=== PATIENT | male | born 1955 ===

== ENCOUNTER 2021-09-20 06:40 | Emergency (ER) | payer OTHER ==
[2021-09-20 06:44] VITALS: BP 146/92
--- NOTE | 2021-09-20 10:12 | Emergency Department Report ---
Minor Respiratory - HPI Chief Complaint: Adult Asthma Stated Complaint: ASTHMA Time Seen by Provider: 09/20/21 10:04 Duration: 3 Days Pain Location: Chest Severity: mild Minor Respiratory: Yes Able to Tolerate Fluids, Yes Cough, No Rhinorrhea, No Sore Throat, No Ear Pain, No Sick Contacts, No Hemoptysis, No Chest Pain, No Shortness of Breath, No Fever Other History: Patient is a 66-year-old male. He is looks much younger than stated age. That comes to the emergency room with acute on chronic asthma exacerbation. He states that he moved here from [place] to get away from his allergies/asthma but they have actually been worse since moving south. He is originally from [place]. He has run out of his inhalers and nebulizer. He has no fever or chills. No purulent sputum. He is a non-smoker. Patient is ambulatory, not ill nontoxic-appearing on exam in [facility] ED Review of Systems ROS: Stated complaint: ASTHMA Other details as noted in HPI Comment: All other systems reviewed and negative ED Past Medical Hx - Past Medical History Previous Medical History?: Yes Hx Asthma: Yes - Surgical History Past Surgical History?: No - Family History Family history: no significant - Social History Smoking Status: Never Smoker Substance Use Type: None - Medications Home Medications: Home Medications Medication Instructions Recorded Confirmed Last Taken Type ALBUTEROL NEB's [Proventil 0.083% 2.5 mg IH TID PRN #1 box 09/20/21 Unknown Rx NEBS] Albuterol Mdi (or & Nicu Only) 2 puff IH QID PRN #1 inhalation 09/20/21 Unknown Rx [ProAir HFA Inhaler] Cetirizine HCl [ZyrTEC] 10 mg PO DAILY #30 capsule 09/20/21 Unknown Rx Fluticasone [Flonase] 1 spray NS QDAY #1 bottle 09/20/21 Unknown Rx predniSONE [Deltasone] 20 mg PO DAILY #5 tablet 09/20/21 Unknown Rx Minor Respiratory Exam - Exam General: Vital signs noted. No distress. Alert and acting appropriately. HEENT: Yes Moist Mucous Membranes, No Pharyngeal Erythema, No Pharyngeal Exudates, No Rhinorrhea, No Conjuctival Injection, No Frontal Tenderness, No Maxillary Tenderness Ear: Neither TM Bulge, Neither TM Erythema, Neither EAC Pain, Neither EAC Discharge Neck: Yes Supple, No Adenopathy Lungs: Yes Good Air Exchange, Yes Wheezes, No Ronchi, No Stridor, No Cough, No Labored Respirations, No Retractions, No Use of Accessory Muscles, No Other Abnormal Lung Sounds Heart: Yes Regular, No Murmur Abdomen: Yes Normal Bowel Sounds, No Tenderness, No Peritoneal Signs Skin: No Rash, No Edema Neurologic: Alert and oriented, no deficits. Musculoskeletal: Unremarkable. ED Course Vital Signs 09/20/21 06:42 Temperature 98.4 F Pulse Rate 90 Respiratory 18 Rate Blood Pressure 146/92 [Right] O2 Sat by Pulse 98 Oximetry ED Medical Decision Making - Radiology Data Radiology results: report reviewed, image reviewed No acute process - Medical Decision Making Vital Signs 09/20/21 06:42 Temperature 98.4 F Pulse Rate 90 Respiratory 18 Rate Blood Pressure 146/92 [Right] O2 Sat by Pulse 98 Oximetry Patient looks much younger than stated age. He has no chest pain or shortness of breath. He comes in for his wheezing. He is out of his inhaler and nebs. He has acute on chronic asthma. No fever or chills. No purulent sputum. He is ambulatory, nontoxic [id number]. He has no hypotension, tachycardia fever or hypoxia. He is fully immunized for COVID. Patient is healthy for 66 years. Patient given DuoNeb and steroids in ER. He tolerated well. The wheezing ceased at that time. On discharge exam patient is ambulatory to and from the restroom with an oxygen sat of 100% on room air. Patient given local referrals per PCP. Patient being discharged home with discharge plan of care including diet, activity, medications and follow-up. He verbalizes understanding of plan of care Vital Signs 09/20/21 06:42 Temperature 98.4 F Pulse Rate 90 Respiratory 18 Rate Blood Pressure 146/92 [Right] O2 Sat by Pulse 98 Oximetry Vital Signs 09/20/21 06:42 Temperature 98.4 F Pulse Rate 90 Respiratory 18 Rate Blood Pressure 146/92 [Right] O2 Sat by Pulse 98 Oximetry - Differential Diagnosis Asthma with or without infection, COVID, pneumonia Critical care attestation.: If time is entered above; I have spent that time in minutes in the direct care of this critically ill patient, excluding procedure time. ED Disposition Clinical Impression: Asthma, acute Disposition: 01 HOME / SELF CARE / HOMELESS Is pt being admited?: No Does the pt Need Aspirin: No Condition: Stable Instructions: Asthma, Adult, Asthma (ED) Additional Instructions: Follow-up with PCP. Have given you referral below. Medications as ordered today Diet and activity as tolerated Stay well-hydrated with water Prescriptions: predniSONE [Deltasone] 20 mg PO DAILY #5 tablet Fluticasone [Flonase] 1 spray NS QDAY #1 bottle Albuterol Mdi (or & Nicu Only) [ProAir HFA Inhaler] 2 puff IH QID PRN #1 inhalation PRN Reason: Shortness Of Breath ALBUTEROL NEB's [Proventil 0.083% NEBS] 2.5 mg IH TID PRN #1 box PRN Reason: Wheezing Cetirizine HCl [ZyrTEC] 10 mg PO DAILY #30 capsule Referrals: CHERI JULES MD [Staff Physician] - 3-5 Days Time of Disposition: 11:56
[2021-09-20] MEDS ORDERED: IPRATROPIUM/ALBUTEROL SULFATE 3 ML AMPUL.NEB IH ONE (10:30)
[2021-09-20] MEDS ORDERED: ALBUTEROL 2.5 MG/3 ML NEBU IH ONE (10:30)
[2021-09-20] MEDS ORDERED: predniSONE 20 MG TAB PO ONE (11:00)
--- NOTE | 2021-09-20 18:46 | XRay Report ---
CHEST 2 VIEWS INDICATION / CLINICAL INFORMATION: SOB. COMPARISON: None available. FINDINGS: SUPPORT DEVICES: None. HEART / MEDIASTINUM: No significant abnormality. LUNGS / PLEURA: No significant pulmonary or pleural abnormality. No pneumothorax. ADDITIONAL FINDINGS: No significant additional findings. IMPRESSION: 1. No acute findings. Signer Name: Sabas Howard MD Signed: 09/20/2021 6:42 PM Workstation Name: [id number]
== END 2021-09-20 17:57 | disposition home or self-care (01) ==
LOC: ED 06:40
DX: J45.901 Unspecified asthma with (acute) exacerbation (principal)
CPT/HCPCS: 71046; 94640; 99283

== ENCOUNTER 2021-10-11 09:53 | Emergency (ER) | payer OTHER ==
[2021-10-11] MEDS ORDERED: IPRATROPIUM 0.02% NEBU 2.5 ML IH ONE (10:19)
[2021-10-11] MEDS ORDERED: MAGNESIUM SULFATE 2 GM/50 ML BAG IV ONE (10:19)
[2021-10-11] MEDS ORDERED: ALBUTEROL 2.5 MG/3 ML NEBU IH ONE (10:19)
[2021-10-11] MEDS ORDERED: methylPREDNISolone Sod Succinate 125 MG/2 ML INJ IV ONE (10:19)
[2021-10-11] MEDS ORDERED: hydrALAZINE 20 MG/1 ML INJ IV ONE ×2 (10:21→12:52)
--- NOTE | 2021-10-11 10:24 | Emergency Department Report ---
ED Shortness of Breath HPI - General Chief Complaint: Dyspnea/Respdistress Stated Complaint: SOB/HTN Time Seen by Provider: 10/11/21 10:19 Source: patient, EMS Mode of arrival: Stretcher Limitations: No Limitations - History of Present Illness Initial Comments: Patient is 66 years old male with history of asthma and hypertension. Patient is noncompliant with his medication. Patient brought to the emergency room via EMS from home for evaluation of shortness of breath and elevated blood pressure. Patient also complaining of wheezing. Patient denies any fever or chills. No chest pain. Patient received albuterol by EMS and stated that it helped his symptoms a little bit. MD Complaint: shortness of breath, cough -: This morning Severity: moderate Known History Of: asthma Associated Symptoms: denies other symptoms - Related Data Previous Rx's Medication Instructions Recorded Last Taken Type ALBUTEROL NEB's [Proventil 0.083% 2.5 mg IH TID PRN #1 box 09/20/21 Unknown Rx NEBS] Albuterol Mdi (or & Nicu Only) 2 puff IH QID PRN #1 inhalation 09/20/21 Unknown Rx [ProAir HFA Inhaler] Cetirizine HCl [ZyrTEC] 10 mg PO DAILY #30 capsule 09/20/21 Unknown Rx Fluticasone [Flonase] 1 spray NS QDAY #1 bottle 09/20/21 Unknown Rx predniSONE [Deltasone] 20 mg PO DAILY #5 tablet 09/20/21 Unknown Rx Allergies Allergy/AdvReac Type Severity Reaction Status Date / Time No Known Allergies Allergy Verified 10/11/21 09:58 ED Review of Systems ROS: Stated complaint: SOB/HTN Other details as noted in HPI Comment: All other systems reviewed and negative Constitutional: denies: chills, fever Respiratory: shortness of breath, SOB with exertion, SOB at rest, wheezing. denies: cough Cardiovascular: denies: chest pain, palpitations Gastrointestinal: denies: abdominal pain, nausea, vomiting Musculoskeletal: denies: back pain Neurological: denies: headache, weakness ED Past Medical Hx - Past Medical History Hx Asthma: Yes - Social History Smoking Status: Never Smoker Substance Use Type: None - Medications Home Medications: Home Medications Medication Instructions Recorded Confirmed Last Taken Type ALBUTEROL NEB's [Proventil 0.083% 2.5 mg IH TID PRN #1 box 09/20/21 Unknown Rx NEBS] Albuterol Mdi (or & Nicu Only) 2 puff IH QID PRN #1 inhalation 09/20/21 Unknown Rx [ProAir HFA Inhaler] Cetirizine HCl [ZyrTEC] 10 mg PO DAILY #30 capsule 09/20/21 Unknown Rx Fluticasone [Flonase] 1 spray NS QDAY #1 bottle 09/20/21 Unknown Rx predniSONE [Deltasone] 20 mg PO DAILY #5 tablet 09/20/21 Unknown Rx ED Physical Exam - General Limitations: No Limitations General appearance: alert, in no apparent distress - Head Head exam: Present: atraumatic, normocephalic, normal inspection - Eye Eye exam: Present: normal appearance - ENT ENT exam: Present: normal exam, normal orophraynx, mucous membranes moist - Neck Neck exam: Present: normal inspection, full ROM. Absent: tenderness, meningismus - Respiratory Respiratory exam: Present: wheezes, rales, decreased breath sounds. Absent: respiratory distress, rhonchi, accessory muscle use, prolonged expiratory - Cardiovascular Cardiovascular Exam: Present: regular rate, normal rhythm, normal heart sounds - GI/Abdominal GI/Abdominal exam: Present: soft, normal bowel sounds. Absent: distended, tenderness, guarding, rebound, rigid, organomegaly, mass, bruit, pulsatile mass, hernia - Extremities Exam Extremities exam: Present: normal inspection, full ROM, normal capillary refill. Absent: tenderness - Back Exam Back exam: Present: normal inspection, full ROM. Absent: CVA tenderness (R), CVA tenderness (L) - Neurological Exam Neurological exam: Present: alert, oriented X3, CN II-XII intact, normal gait, reflexes normal. Absent: motor sensory deficit - Psychiatric Psychiatric exam: Present: normal mood - Skin Skin exam: Present: warm, intact, normal color ED Course Vital Signs 10/11/21 10/11/21 09:55 11:38 Pulse Rate 108 H Pulse Rate [ 114 H Bilateral] Respiratory 18 Rate Respiratory 20 Rate [Bilateral ] Blood Pressure 201/105 [Right] O2 Sat by Pulse 97 Oximetry ED Medical Decision Making - Lab Data Result diagrams: 10/11/21 10:32 10/11/21 10:32 - Radiology Data Radiology results: report reviewed - Medical Decision Making Patient is 66 years old male with history of asthma and hypertension. Patient is noncompliant with his medication. Patient brought to the emergency room via EMS from home for evaluation of shortness of breath and elevated blood pressure. Patient also complaining of wheezing. Patient denies any fever or chills. No chest pain. Patient received albuterol by EMS and stated that it helped his symptoms a little bit. Patient received albuterol, Atrovent, Solu-Medrol and magnesium sulfate. Patient stated that he is feeling much better. Patient received hydralazine 20 mg IV for his blood pressure with improvement. Labs reviewed and is unremarkable. Chest x-ray is negative for acute finding. Patient given prescription for prednisone, albuterol and Norvasc and advised to follow-up with his primary doctor in the next 2 to 3 days and to return to the ER if he develop any new symptoms Critical care attestation.: If time is entered above; I have spent that time in minutes in the direct care of this critically ill patient, excluding procedure time. ED Disposition Clinical Impression: Acute asthma exacerbation, Malignant hypertension Disposition: 01 HOME / SELF CARE / HOMELESS Is pt being admited?: No Condition: Stable Instructions: Hypertension (ED), Asthma Attack Prevention, Adult, Hypertension, Adult Referrals: PRIMARY CARE, [Primary Care Provider] - 3-5 Days
--- NOTE | 2021-10-11 10:46 | XRay Report ---
CHEST 1 VIEW INDICATION: Dyspnea. COMPARISON: 09/20/2021 FINDINGS: Support devices: None. Heart: Normal. Lungs/Pleura: No acute pulmonary or pleural findings. Mild COPD changes. IMPRESSION: 1. No acute findings. Signer Name: Lopez Goldberg MD Signed: 10/11/2021 10:41 AM Workstation Name: [id number]
[2021-10-11 10:48] LABS: Basophils % (Auto) 0.5 % (0.0-1.8); Eosinophils # (Auto) 0.2 K/mm3 (0.0-0.4); Eosinophils % (Auto) 2.3 % (0.0-4.3); Hematocrit 42.5 % (35.5-45.6); Hemoglobin 14.1 gm/dl (11.8-15.2); Lymphocytes # (Auto) 1.3 K/mm3 (1.2-5.4); Lymphocytes % (Auto) 18.9 % (13.4-35.0); Mean Corpuscular HGB Conc 33 % (32-34); Mean Corpuscular Volume 84 fl (84-94); Monocytes # (Auto) 0.9 K/mm3 (0.0-0.8); Monocytes % (Auto) 12.2 % (0.0-7.3); Platelet Count 240 K/mm3 (140-440); Red Blood Count 5.06 M/mm3 (3.65-5.03)
[2021-10-11 11:15] LABS: BUN/Creatinine Ratio 11; Blood Urea Nitrogen 10 mg/dL (9-20); Calcium 9.4 mg/dL (8.4-10.2); Hemolysis Index 6
[2021-10-11 11:19] LABS: Alanine Aminotransferase 46 units/L (7-56); Albumin 4.4 g/dL (3.9-5)
[2021-10-11 11:23] LABS: Bilirubin,Direct < 0.2 mg/dL (0-0.2)
[2021-10-11 11:30] LABS: INR 0.86 (0.87-1.13)
[2021-10-11] MEDS ORDERED: hydrALAZINE 20 MG/1 ML INJ ONE (12:53)
[2021-10-11] MEDS ORDERED: cloNIDine 0.1 MG TAB PO ONE ×2 (14:13→14:26)
[2021-10-11] MEDS ORDERED: MORPHINE 4 MG/1 ML INJ IM ONE (15:28)
[2021-10-11 15:59] LABS: Partial Thromboplastin Time 30.3 Sec. (24.2-36.6)
[2021-10-11 16:12] VITALS: BP 151/99
--- NOTE | 2021-10-12 13:26 | Electrocardiograph Report ---
[facility] Test Date: 2021-10-11 Test Time: 10:14:47 Pat Name: DAGMAR SAUCEDO Department: Room: Gender: M [employer] Carver: OZZY : 1955 Requested By: KERRI DUENAS Order Number: [id number] Reading MD: Marshal Montes Measurements Intervals [place] Rate: 67 P: -89 GA: QRS: 83 QRSD: 97 T: 48 QT: 392 QTc: 414 Interpretive Statements Sinus or ectopic atrial rhythm Second deg AVB, Mobitz I (Wenckebach) Probable anteroseptal infarct, old No previous ECG available for comparison Electronically Signed On 10-12-2021 13:25:58 EDT by Marshal Montes
== END 2021-10-11 16:11 | disposition home or self-care (01) ==
LOC: ED 09:53
DX: J45.901 Unspecified asthma with (acute) exacerbation (principal); I10 Essential (primary) hypertension
CPT/HCPCS: 36415; 71045; 80048; 80076; 83880; 84484; 85025; 85610; 85730; 93005; 94640; 96365; 96375; 96376; 99284; J0360; J2930; J3475; 94644